=== PATIENT | female | born 1940 | race Caucasian/White ===

== ENCOUNTER 2018-11-18 16:54 | Emergency (ER) | payer MEDICARE, OTHER ==
[~2018-11-18] VITALS: Ht 160 cm; Wt 72.7 kg
[2018-11-18 17:20] VITALS: BP 158/59
== END 2018-11-18 18:49 | disposition home or self-care (01) ==
LOC: ER 16:54
DX: H11.32 Conjunctival hemorrhage, left eye (principal)
CPT/HCPCS: 99281

== ENCOUNTER 2022-04-17 12:39 | Emergency (ER) | payer OTHER ==
[~2022-04-17] VITALS: Ht 160 cm; Wt 78.7 kg
[2022-04-17] MEDS ORDERED: furosemide 10 MG/1 ML 10ml inj IV ONE (17:00)
--- NOTE | 2022-04-17 17:23 | NUR ---
Adilia Araya, caregiver phone number is , call when ready [email or web address] [email or web address]
[2022-04-17 17:56] LABS: BASOPHILS % (AUTO) 0.5 % (0-1); EOSINOPHILS # (AUTO) 0.3 X10'3 (0-0.9); EOSINOPHILS % (AUTO) 3.5 % (0-6); HEMATOCRIT 32.7 % (35.0-45.0); HEMOGLOBIN 10.9 g/dl (12.0-16.0); LYMPHOCYTES # (AUTO) 1.3 X10'3 (1.1-4.8); LYMPHOCYTES % (AUTO) 15.1 % (21-51); MEAN CORPUSCULAR HEMOGLOBIN 31.3 PG (27.0-31.0); MEAN CORPUSCULAR HGB CONC 33.4 g/dL (33.0-36.5); MEAN CORPUSCULAR VOLUME 93.5 FL (78-98); MEAN PLATELET VOLUME 8.8 FL (7.4-10.4); MONOCYTES # (AUTO) 0.8 X10'3 (0-0.9); MONOCYTES % (AUTO) 8.8 % (2-12); NEUTROPHILS # (AUTO) 6.3 X10'3 (1.8-7.7); NEUTROPHILS % (AUTO) 72.1 % (42-75); PLATELET COUNT 374 X10'3 (140-440); RED CELL DISTRIBUTION WIDTH 14.1 % (11.5-14.5); WHITE BLOOD COUNT 8.8 X10'3 (4.5-11.0)
[2022-04-17 18:01] LABS: ALANINE AMINOTRANSFERASE 17 U/L (12-78); ALBUMIN 3.5 G/DL (3.4-5.0); ALKALINE PHOSPHATASE 110 IU/L (46-116); ANION GAP 11 (8-16); ASPARTATE AMINO TRANSFERASE 16 U/L (10-37); BILIRUBIN,TOTAL 0.2 MG/DL (0.1-1.0); BLOOD UREA NITROGEN 31 MG/DL (7-18); BUN/CREATININE RATIO 16.8 (6.6-38.0); CALCIUM 9.4 MG/DL (8.5-10.1); CHLORIDE 105 MMOL/L (99-107); CREATININE 1.85 MG/DL (0.40-0.90); GLUCOSE 140 MG/DL (70-104); POTASSIUM 4.6 MMOL/L (3.5-5.1); SODIUM 142 MMOL/L (135-145); TOTAL CARBON DIOXIDE 26.3 MMOL/L (24-32); eGFR 26 ML/MIN
[2022-04-17] MEDS ORDERED: POTA-192 PO (18:18)
[2022-04-17] MEDS ORDERED: FURO-150 PO (18:18)
[2022-04-17 18:51] VITALS: BP 150/77
== END 2022-04-17 18:56 | disposition home or self-care (01) ==
LOC: ER 12:39
DX: I50.9 Heart failure, unspecified (principal); R60.9 Edema, unspecified; E78.00 Pure hypercholesterolemia, unspecified; Z88.0 Allergy status to penicillin
CPT/HCPCS: 36415; 71045; 80053; 83880; 84484; 85025; 93005; 96374; 99285; J1940